=== PATIENT | female | born 1990 | race African-American/Black ===

== ENCOUNTER 2020-09-21 05:48 | Inpatient (IN) ==
[2020-09-21] MEDS ORDERED: ONDANSETRON 4 MG/2 ML VIAL IV PRN (05:57)
[2020-09-21] MEDS ORDERED: MEPERIDINE 50 MG/1 ML VIAL IV PRN (05:57)
[2020-09-21] MEDS ORDERED: BUTORPHANOL 2 MG/ML VIAL IV PRN (05:57)
[2020-09-21] MEDS ORDERED: OXYTOCIN/LR 20 UNIT/1,000 ML BAG IV SCH (06:00)
[2020-09-21] MEDS: LACTATED RINGERS 1,000 ML IV SCH ×2 (06:27→12:22)
[2020-09-21 06:48] LABS: Basophils % 0.3 % (0.0-0.8); Eosinophils # 0.2 10*3/uL (0.0-0.87); Hematocrit 38.3 VOL% (35.7-47.0); Hemoglobin 12.5 GM/DL (12.0-16.0); Immature Granulocytes % 0.7 %; Immature Granulocytes Absolute 0.08 #; Lymphocytes # 2.9 10*3/uL (1.4-4.0); Lymphocytes % 24.8 % (21.3-54.2); Mean Corpuscular HGB Conc 32.6 GM/DL (32-36); Mean Platelet Volume 12.9 FL (9.6-12.0); Monocytes % 6.9 % (1.7-12.7); Neutrophils % 65.3 % (38.7-73.9); Platelet Count 185 T/CUMM (130-400); Red Blood Count 4.12 MC/CUMM (3.8-5.5); Red Cell Distribution Width 14.9 % (9.3-17.3); White Blood Count 11.8 T/CUMM (4-12)
[2020-09-21 07:09] LABS: Albumin 2.7 G/DL (3.4-5.0); Bilirubin,Total 0.4 MG/DL (0.2-1.0); Osmolality,Calculated 273.7 MOS/KG (273-304); Potassium 3.7 MMOL/L (3.5-5.1); Total Protein 7.1 G/DL (6.4-8.2)
[2020-09-21] MEDS ORDERED: diphenhydrAMINE 50 MG/1 ML VIAL IV PRN (08:21)
[2020-09-21] MEDS ORDERED: CITRIC ACID/SODIUM CITRATE 30 ML UDCUP PO ONE (08:21)
[2020-09-21] MEDS ORDERED: NALOXONE 0.4 MG/ML VIAL IV PRN (08:21)
[2020-09-21] MEDS ORDERED: FAMOTIDINE 20 MG/2 ML VIAL IV ONE (08:21)
[2020-09-21] MEDS ORDERED: hydrOXYzine HCL 25 MG/1 ML VIAL IM PRN (08:21)
[2020-09-21] MEDS ORDERED: ePHEDrine 50 MG/ML VIAL IV PRN (08:21)
[2020-09-21] MEDS ORDERED: PROMETHAZINE 25 MG/1 ML VIAL IM PRN (08:21)
[2020-09-21] MEDS ORDERED: fentaNYL 2 MCG/ROPIV 0.2% EPID 100 ML EPIDURAL SCH (08:30)
[2020-09-21 09:15] LABS: Bacteria,Urine Occasional /HPF (Few); Bilirubin,Urine Negative (Negative); Blood, Urine Negative (Negative); Glucose,Urine (UA) 50 mg/dL (Negative); Ketones,Urine Negative (Negative); Mucus,Urine Few /LPF (Occasional); Nitrite,Urine Negative (Negative); Protein,Urine 30 MG/DL; RBC,Urine 2 /HPF (0-4); Squamous Epithelial Cell,Urine Occasional /HPF (0-10); Urine Appearance CLEAR (Clear); Urine Color Yellow (Yellow); Urine Specific Gravity 1.028 (1.001-1.035); Urine Urobilinogen < 2.0 EU/DL (0.2-1.0)
[2020-09-21] MEDS ORDERED: BUTORPHANOL 2 MG/ML VIAL ONE (10:55)
[2020-09-21] MEDS ORDERED: OXYTOCIN/LR 20 UNIT/1,000 ML BAG IV ONE ×3 (11:08→22:26)
[2020-09-21] MEDS ORDERED: TRANEXAMIC ACID 1,000 MG/10 ML VIAL ONE (11:08)
[2020-09-21] MEDS ORDERED: miSOPROStoL 200 MCG TABLET ONE (11:08)
[2020-09-21] MEDS ORDERED: CARBOPROST TROMETHAMINE 250 MCG/ML AMP IM ONE (11:09)
[2020-09-21] MEDS ORDERED: METHYLERGONOVINE 0.2 MG/1 ML AMP ONE (11:09)
[2020-09-21] MEDS ORDERED: SODIUM CHLORIDE 0.9% 0 ML IV ONE (11:10)
[2020-09-21] MEDS ORDERED: LIDOCAINE 1% 50 ML VIAL ONE (11:10)
[2020-09-21 15:12] LABS: Cord Arterial Blood HCO3 19.1 MMOL/L
[2020-09-21 15:15] LABS: Cord Venous Blood HCO3 20.3 MMOL/L; Cord Venous Blood PCO2 55.8 MMHG; Cord Venous Blood PO2 23.8
[2020-09-21] MEDS ORDERED: IBUPROFEN 800 MG TABLET PO ONE (15:32)
[2020-09-21] MEDS: FUROSEMIDE 40 MG/4 ML VIAL IV SCH ×2 (15:40→20:47)
[2020-09-21] MEDS ORDERED: WITCH HAZEL PADS 100/JAR TOP PRN (22:26)
[2020-09-21] MEDS ORDERED: BENZOCAINE 20%/MENTHOL 0.5% SPRAY 56 GM CAN TOP PRN (22:26)
[2020-09-21] MEDS ORDERED: MEASLES/MUMPS/RUBELLA VACCINE 0.5 ML VIAL SUBCUT ONE (22:26)
[2020-09-21] MEDS ORDERED: HYDROCORTISONE 2.5% RECTAL CREAM 30 GM TUBE TOP PRN (22:26)
[2020-09-21] MEDS ORDERED: ACETAMINOPHEN 325 MG TABLET PO PRN (22:26)
[2020-09-21] MEDS ORDERED: DIPH/TET/ACEL PERT BOOSTER VACCINE 0.5 ML VIAL IM ONE (22:26)
[2020-09-21] MEDS ORDERED: oxyCODONE/ACETAMINOPHEN 5-325 MG TABLET PO PRN (22:26)
[2020-09-21] MEDS ORDERED: RHO(D) IMMUNE GLOBULIN 300 MCG SYRINGE IM ONE (22:26)
[2020-09-21] MEDS ORDERED: BISACODYL 10 MG SUPP RECTAL PRN (22:26)
[2020-09-21] MEDS ORDERED: LANOLIN 50% CREAM 0.3 OZ TUBE TOP PRN (22:26)
[2020-09-21] MEDS: IBUPROFEN 800 MG TABLET PO PRN (22:35)
[2020-09-21] MEDS: oxyCODONE/ACETAMINOPHEN 5-325 MG TABLET PO PRN (22:35)
[2020-09-21] MEDS: DOCUSATE SODIUM 100 MG CAPSULE PO SCH (23:33)
[2020-09-22] MEDS: FUROSEMIDE 40 MG/4 ML VIAL IV SCH (03:44)
[2020-09-22 05:44] LABS: Basophils # 0.1 10*3/uL (0.0-0.2); Basophils % 0.3 % (0.0-0.8); Eosinophils # 0.1 10*3/uL (0.0-0.87); Eosinophils % 0.4 % (0.00-10.9); Hematocrit 33.4 VOL% (35.7-47.0); Hemoglobin 11.3 GM/DL (12.0-16.0); Immature Granulocytes % 0.7 %; Immature Granulocytes Absolute 0.14 #; Lymphocytes % 15.4 % (21.3-54.2); Mean Corpuscular HGB Conc 33.8 GM/DL (32-36); Mean Corpuscular Volume 90.5 FL (87-102); Mean Platelet Volume 12.6 FL (9.6-12.0); Monocytes % 5.5 % (1.7-12.7); Neutrophils % 77.7 % (38.7-73.9); Platelet Count 160 T/CUMM (130-400); Red Blood Count 3.69 MC/CUMM (3.8-5.5); White Blood Count 19.7 T/CUMM (4-12)
[2020-09-22 06:04] LABS: Hypochromasia 1+; Microcytosis 1+; Ovalocytes Slight; Platelet Estimate Adequate
[2020-09-22] MEDS: DOCUSATE SODIUM 100 MG CAPSULE PO SCH ×3 (09:21→20:28)
[2020-09-22] MEDS: IBUPROFEN 800 MG TABLET PO PRN (21:38)
[2020-09-22] MEDS: oxyCODONE/ACETAMINOPHEN 5-325 MG TABLET PO PRN (21:39)
[2020-09-23 07:16] VITALS: BP 135/85
[2020-09-23] MEDS: DOCUSATE SODIUM 100 MG CAPSULE PO SCH (08:57)
== END 2020-09-23 13:15 | disposition home or self-care (01) | DRG 560 ==
LOC: N.LD 05:48 → N.OB 21:54
PROVIDERS: ADMIT Obstetrics & Gynecology; ATTEND Obstetrics & Gynecology